=== PATIENT | male | born 1965 | race Caucasian/White ===

== ENCOUNTER → 2016-03-21 | Outpatient (CLI) | payer BC | LOC: GMA 18:04 | PROVIDERS: ATTEND Nurse Practitioner Family | DX: R39.12 Poor urinary stream (principal) ==

== ENCOUNTER 2016-03-23 18:25 | Emergency (ER) | payer BC ==
[2016-03-23 19:42] VITALS: BP 134/90; TEMP 100
--- NOTE | 2016-03-23 19:59 | ED.PDOC ---
History of Present Illness - General Chief Complaint: Problem Stated Complaint: urinary retention Time Seen by Provider: 03/23/16 19:39 Source: patient Exam Limitations: no limitations - History of Present Illness Initial Comments: Patient stated that 6 days ago started having difficulty urinating then went to see his md 3dyas ago and exam done at his office noted that he had enlarged prostate and was diagnosed with prostatitis given antibiotics for 6 weeks and Flomax;he had history of frequency one year ago took flomax for a month but stopped it patient feels like not working had psa test done accdg. to patient and was normal Timing/Duration: constant, week - one Quality: sharpness Onset Location: suprapubic Radiation: none Activites at Onset: none Prior abdominal problems: none Sexual intercourse history: single partner Improving Factors: nothing Worsening Factors: nothing Associated Symptoms: dysuria, urinary frequency Allergies/Adverse Reactions: Allergies NO KNOWN ALLERGY Allergy (Verified 03/23/16 19:35) Home Medications: Ambulatory Orders Levothyroxine Sodium [Synthroid] 175 mcg PO DAILY 04/26/15 Ranitidine HCl [Zantac] 300 mg PO DAILY 04/26/15 Tamsulosin HCl [Flomax] 0.4 mg PO DAILY 04/26/15 Ciprofloxacin [Cipro] 500 mg PO BID 03/23/16 Review of Systems - Review of Systems Constitutional: States: no symptoms reported EENTM: States: no symptoms reported Respiratory: States: no symptoms reported Cardiology: States: no symptoms reported Gastrointestinal/Abdominal: States: no symptoms reported Genitourinary: States: see HPI, dysuria, frequency Musculoskeletal: States: no symptoms reported Skin: States: no symptoms reported Neurological: States: no symptoms reported Endocrine: States: no symptoms reported Hematologic/Lymphatic: States: no symptoms reported Past Medical History (General) - Patient Medical History Hx Stroke: No Hx Congestive Heart Failure: No Hx Thyroid Disease: Yes Hx Diabetes: No Hx Gastroesophageal Reflux: Yes Hx MRSA: No Surgical History: no surgical history - Vaccination History Hx Influenza Vaccination: No Hx Pneumococcal Vaccination: No - Social History Hx Tobacco Use: No - Activities of Daily Living Patient Lives Alone: No - lives with family Family Medical History - Family History Father Living Status: Hx Family Cancer: Yes - prostate Physical Exam - Physical Exam General Appearance: Alert, Anxious, No apparent distress Eyes, Ears, Nose, Throat Exam: PERRL/EOMI, normal ENT inspection, TMs normal, pharynx normal Neck: non-tender, full range of motion, supple, normal inspection Cardiovascular/Respiratory: regular rate, rhythm, no M/R/G, normal peripheral pulses, no JVD, no respiratory distress Gastrointestinal/Abdominal: soft, tenderness - suprapubic area Rectal Exam: deferred - stated was done at his md 's office 3 days ago Male Genital Exam: normal genitalia, no hernia Back Exam: no CVA tenderness, no vertebral tenderness Extremity: non-tender, normal inspection, no pedal edema Skin Exam: normal color, warm/dry Lymphatic: no adenopathy Progress - Results/Orders Results/Orders: hinojosa cath insertion done by the nurse residual urine 200 cc Departure - Departure Clinical Impression: Acute urinary retention, Frequency of urination, H/O acute prostatitis Time of Disposition: 20:05 Disposition: Discharge to Home or Self Care Condition: Good Departure Forms: ED Discharge - Pt. Copy, Patient Portal Self Enrollment Referrals: Kailyn Louis NP [Primary Care Provider] - 1-2 Weeks Home Medications: Ambulatory Orders Levothyroxine Sodium [Synthroid] 175 mcg PO DAILY 04/26/15 Ranitidine HCl [Zantac] 300 mg PO DAILY 04/26/15 Tamsulosin HCl [Flomax] 0.4 mg PO DAILY 04/26/15 Ciprofloxacin [Cipro] 500 mg PO BID 03/23/16 Additional Instructions: CONTINUE WITH CURRENT MEDICATIONS,FOLLOW UP WITH PRIMARY MD 03/25/2016 patient to call for appt.Return to emergency room as needed.
[2016-03-23] MEDS ORDERED: PHENAZOPYRIDINE HCL 200 MG TAB PO ONE (20:55)
[2016-03-23] MEDS ORDERED: LORazepam 0.5 MG TAB PO ONE (20:56)
[2016-03-23 22:55] VITALS: O2SAT 97
== END 2016-03-23 21:15 | disposition home or self-care (01) ==
LOC: ER 18:25
DX: R33.9 Retention of urine, unspecified (principal); R35.0 Frequency of micturition; E07.9 Disorder of thyroid, unspecified; K21.9 Gastro-esophageal reflux disease without esophagitis; Z80.42 Family history of malignant neoplasm of prostate

== ENCOUNTER → 2016-03-25 | Outpatient (CLI) | payer BC | LOC: GMAM 15:11 | PROVIDERS: ATTEND Family Medicine | DX: N41.9 Inflammatory disease of prostate, unspecified (principal) ==

== ENCOUNTER → 2016-05-31 | Outpatient (CLI) | payer BC | LOC: GMAM 10:28 | PROVIDERS: ATTEND Family Medicine | DX: E03.9 Hypothyroidism, unspecified (principal) ==

== ENCOUNTER → 2016-06-07 | Outpatient (CLI) | payer BC | END | disposition home or self-care (01) | LOC: GMAM 10:49 | PROVIDERS: ATTEND Family Medicine | DX: Z12.5 Encounter for screening for malignant neoplasm of prostate (principal) ==

== ENCOUNTER → 2017-09-22 | Outpatient (CLI) | payer BC | LOC: GMAM 10:51 | PROVIDERS: ATTEND Family Medicine | DX: E03.9 Hypothyroidism, unspecified (principal); Z12.5 Encounter for screening for malignant neoplasm of prostate ==

== ENCOUNTER 2017-11-24 20:39 | Emergency (ER) | payer BC ==
[2017-11-24] MEDS ORDERED: NITROGLYCERIN 0.4 MG 25 EA TAB SL ONE ×2 (20:43→23:17)
[2017-11-24] MEDS ORDERED: ASPIRIN (CHEWABLE) 81 MG TAB ONE (20:44)
[2017-11-24] MEDS ORDERED: TENECTEPLASE 50 MG VIAL ONE (20:47)
[2017-11-24] MEDS ORDERED: ASPIRIN (CHEWABLE) 81 MG TAB PO ONE (20:50)
[2017-11-24] MEDS: NITROGLYCERIN 0.4 MG 25 EA TAB SL ONE ×3 (20:50→21:00)
--- NOTE | 2017-11-24 20:53 | ED.PDOC ---
History of Present Illness - General Chief Complaint: Chest Pain/PR Stated Complaint: chest pain Time Seen by Provider: 11/24/17 20:50 Source: patient Exam Limitations: no limitations - History of Present Illness Initial Comments: Oren Warren 51 y/o male stated that he had chest heaviness after eating dinner tonight w/SOB and feels like choking.No previous cardiac history.Recently seen primary Md 2 weeks ago for routine physical told EKG was normal. Timing/Duration: 1/2 hour Severity: severe Location: central Activities at Onset: other - after eating Prior Chest Pain/Cardiac Workup: no prior chest pain, no prior cardiac workup Improving Factors: nothing Worsening Factors: nothing Nitro Today/Relief: 0.4 mg x 1, provided by ED Aspirin Treatment Today: 81 mg x 4 Allergies/Adverse Reactions: Allergies NO KNOWN ALLERGY Allergy (Verified 03/23/16 19:35) Home Medications: Ambulatory Orders Levothyroxine Sodium [Synthroid] 175 mcg PO DAILY 04/26/15 Ranitidine HCl [Zantac] 300 mg PO DAILY 04/26/15 Tamsulosin HCl [Flomax] 0.4 mg PO DAILY 04/26/15 Ciprofloxacin [Cipro] 500 mg PO BID 03/23/16 Phenazopyridine HCl [Pyridium] 200 mg PO BID #14 tab 03/23/16 Review of Systems - Review of Systems Constitutional: States: no symptoms reported EENTM: States: no symptoms reported Respiratory: States: no symptoms reported Cardiology: States: see HPI Gastrointestinal/Abdominal: States: no symptoms reported Genitourinary: States: no symptoms reported Musculoskeletal: States: no symptoms reported Skin: States: no symptoms reported Neurological: States: no symptoms reported Endocrine: States: no symptoms reported Hematologic/Lymphatic: States: no symptoms reported Past Medical History (General) - Patient Medical History Hx Stroke: No Hx Congestive Heart Failure: No Hx Thyroid Disease: Yes Hx Diabetes: No Hx Gastroesophageal Reflux: Yes Hx MRSA: No Surgical History: no surgical history - Vaccination History Hx Influenza Vaccination: No Hx Pneumococcal Vaccination: No - Social History Hx Tobacco Use: No Family Medical History - Family History Father Living Status: Hx Family Stroke: Yes - parents Hx Cardiac Disease: Yes - parents Hx Family Cancer: Yes - prostate Physical Exam - Physical Exam General Appearance: Alert, Anxious, No apparent distress Eyes, Ears, Nose, Throat Exam: normal ENT inspection Neck: non-tender, full range of motion, supple Respiratory: chest non-tender, lungs clear, normal breath sounds, no respiratory distress Cardiovascular/Chest: normal peripheral pulses, regular rate, rhythm, no gallop , no murmur Peripheral Pulses: radial,right: 2+, radial,left: 2+ Gastrointestinal/Abdominal: normal bowel sounds, non tender, soft, no organomegaly Extremity: non-tender, no pedal edema, no calf tenderness Neurologic: no motor/sensory deficits, alert, oriented x 3 Progress - Progress Progress: 11/24/17 21:22 Had episode of v.fib while being given TNK and went into V.Fib received unsynchronized cardiac shock 200J by the nurse.Went into ROSC [id number] Hr 76 11/24/17 21:[address] Lopez ekg tech at 2110 H agreed with TNK protocol Departure - Departure Clinical Impression: Acute PR, anterolateral wall, Chest heaviness Time of Disposition: 21:40 Disposition: Transfer to Hospital Condition: Fair Departure Forms: Patient Portal Self Enrollment Referrals: Kailyn Louis NP [Primary Care Provider] - 1-2 Weeks Home Medications: Ambulatory Orders Levothyroxine Sodium [Synthroid] 175 mcg PO DAILY 04/26/15 Ranitidine HCl [Zantac] 300 mg PO DAILY 04/26/15 Tamsulosin HCl [Flomax] 0.4 mg PO DAILY 04/26/15 Ciprofloxacin [Cipro] 500 mg PO BID 03/23/16 Phenazopyridine HCl [Pyridium] 200 mg PO BID #14 tab 03/23/16 Transfer to Outside Facility - Transfer Information Accepting Provider:: -Telegraph Mechanic Accepting Facility: [facility] Reason for Transfer: sanitation laborer
[2017-11-24] MEDS ORDERED: ASPIRIN TABLET 325 MG TAB PO ONE (20:58)
[2017-11-24] MEDS ORDERED: SODIUM CHLORIDE 0.9% (FLUSH) 10 ML SYG IV PRN (20:58)
[2017-11-24] MEDS ORDERED: HEPARIN SODIUM (PORCINE) 5,000 U/ML VIAL ONE (21:18)
[2017-11-24] MEDS ORDERED: TENECTEPLASE 50 MG VIAL IV ONE (21:22)
[2017-11-24] MEDS ORDERED: HEPARIN SODIUM (PORCINE) 5,000 U/ML VIAL IV ONE (21:24)
[2017-11-24] MEDS ORDERED: HEPARIN PREMIX 500 ML ONE (21:25)
[2017-11-24] MEDS ORDERED: SODIUM CHLORIDE 0.9% 1000ML 1,000 ML ONE (21:26)
[2017-11-24] MEDS ORDERED: HEPARIN PREMIX 25,000 UNITS in PREMIX BAG 1 BAG IVS SCH (21:30)
[2017-11-24] MEDS ORDERED: AMIODARONE HCL 150 MG/3 ML VIAL IVPB ONE (21:31)
[2017-11-24] MEDS ORDERED: SODIUM CHLORIDE 0.9% 50ML 50 ML ONE (21:32)
[2017-11-24] MEDS ORDERED: AMIODARONE IV (LOAD) 150 MG in DEXTROSE 5% 100ML 100 ML IVPB ONE (21:36)
[2017-11-24] MEDS ORDERED: MORPHINE SULFATE INJ 10 MG/ML VIAL IV ONE ×2 (21:39)
[2017-11-24] MEDS ORDERED: MORPHINE SULFATE INJ 10 MG/ML VIAL ONE (21:39)
--- NOTE | 2017-11-24 21:47 | RAD ---
PROCEDURE: XR Chest, 1 View CLINICAL INDICATION: The patient is 51 years old and is Male; pain TECHNIQUE: Frontal view of the chest. COMPARISON: Prior study from 09/23/2017. FINDINGS: LIMITATIONS: The patient is rotated, which can compromise assessment. RIGHT costophrenic sulcus is not included. LUNGS: The lungs are clear and free of focal consolidation. Pulmonary vascularity is mildly engorged. PLEURAL SPACE: There is NO pneumothorax. There are no pleural effusions noted. HEART: The heart size is mildly enlarged. MEDIASTINUM: The mediastinal contour is unremarkable. Bilateral hilar calcified granulomas are suspected. BONES/JOINTS: Unremarkable.No acute fracture noted. No dislocation. Joint spaces maintained. VASCULATURE: The aorta is uncoiled. IMPRESSION: 1. The lungs are clear and free of focal consolidation. Study limitations noted above. 2. No significant interval change when compared to the prior study from two months earlier. Electronically signed by: Mode Kaplan MD 11/24/2017 9:45 PM CDT
[2017-11-24 22:56] VITALS: BP 142/96; TEMP 99.4; O2SAT 99
== END 2017-11-24 21:50 | disposition short-term general hospital (02) ==
LOC: ER 20:39
DX: I21.09 ST elevation (STEMI) myocardial infarction involving other coronary artery of anterior wall (principal); E07.9 Disorder of thyroid, unspecified; K21.9 Gastro-esophageal reflux disease without esophagitis; Z79.899 Other long term (current) drug therapy
CPT/HCPCS: 36415; 71045; 80048; 80076; 82550; 82553; 83880; 84484; 85025; 85610; 85730; 93005; A4216; J0282; J1644; J2270; J3101; J7030

== ENCOUNTER → 2017-12-10 | Outpatient (CLI) | payer BC | LOC: GMAM 14:55 | PROVIDERS: ATTEND Family Medicine | DX: I50.20 Unspecified systolic (congestive) heart failure (principal); E03.9 Hypothyroidism, unspecified ==

== ENCOUNTER → 2018-07-08 | Outpatient (CLI) | payer BC | LOC: GMAM 10:48 | PROVIDERS: ATTEND Family Medicine | DX: E03.9 Hypothyroidism, unspecified (principal); E78.2 Mixed hyperlipidemia; R73.9 Hyperglycemia, unspecified; N40.0 Benign prostatic hyperplasia without lower urinary tract symptoms ==

== ENCOUNTER → 2018-10-05 | Outpatient (CLI) | payer BC | LOC: GMAM 10:19 | PROVIDERS: ATTEND Family Medicine | DX: E03.9 Hypothyroidism, unspecified (principal) ==

== ENCOUNTER → 2019-12-10 | Outpatient (CLI) | payer BC | LOC: GMAM 10:05 | PROVIDERS: ATTEND Family Medicine | DX: E03.9 Hypothyroidism, unspecified (principal); R73.9 Hyperglycemia, unspecified; R97.20 Elevated prostate specific antigen [PSA]; E29.1 Testicular hypofunction ==